=== PATIENT | male | born 1985 | race African-American/Black ===

== ENCOUNTER 2020-05-07 16:12 | Emergency (ER) | payer OTHER ==
[2020-05-07] MEDS ORDERED: KETOROLAC 60 MG/2 ML VIAL IM STA (16:26)
--- NOTE | 2020-05-07 16:42 | ED Physician Documentation ---
PD HPI LOWER EXT INJURY - Stated complaint Stated Complaint: LT KNEE INJ - Chief complaint Chief Complaint: Ext Problem - History obtained from History obtained from: Patient - History of Present Illness PD HPI LOW EXT INJURY LOCATION: Left, Knee Type of injury: Twist Where injury occurred: Park Timing - onset: Yesterday Pain level max: 7 Pain level now: 5 Improved by: Rest, Ice, Immobilization Worsened by: Moving, Palpating Associated symptoms: Swelling. No: Weakness, Numbness, Tingling - Additional information Additional information: 34-year-old male presents the emergency department with a left knee injury while playing soccer yesterday. Feels like his knee gave out on him while running. Worse with movement and better with rest. Review of Systems Constitutional: denies: Fever, Chills Respiratory: denies: Cough GI: denies: Nausea, Vomiting, Diarrhea Skin: denies: Rash Musculoskeletal: denies: Neck pain, Back pain Neurologic: denies: Headache PD PAST MEDICAL HISTORY - Past Medical History Past Medical History: No - Past Surgical History Past Surgical History: No - Present Medications Home Medications: Ambulatory Orders Medication Instructions Recorded Confirmed Ibuprofen [Motrin] 800 mg PO Q8H PRN #30 tablet 05/07/20 - Allergies Allergies/Adverse Reactions: Allergies Allergy/AdvReac Type Severity Reaction Status Date / Time No Known Drug Allergies Allergy Verified 05/07/20 16:21 - Living Situation Living Arrangement: reports: At home - Social History Does the pt have substance abuse?: No - Family History Family history: reports: Non contributory PD ED PE NORMAL - Vitals Vital signs reviewed: Yes - General General: Alert and oriented X 3, No acute distress - HEENT HEENT: Moist mucous membranes - Derm Derm: Warm and dry - Extremities Extremities: Other (Left knee - Mild effusion. No tenderness along the joint lines. ACL, PCL are intact. Mild laxity of the MCL and LCL. Difficulty with meniscus testing secondary to swelling. Neurovascular intact.) - Neuro Neuro: Alert and oriented X 3 Results - Vitals Vitals: Vital Signs - 24 hr 05/07/20 05/07/20 16:19 17:54 Temperature 36.8 C 37 C Heart Rate 88 76 Respiratory 18 16 Rate Blood Pressure 148/99 H 160/87 H O2 Saturation 100 100 Oxygen O2 Source Room air - Rads (name of study) Left knee x-ray Radiology: Prelim report reviewed, EMP read contemporaneously, See rad report (N o fracture or dislocation. Small to moderate knee joint effusion.) PD MEDICAL DECISION MAKING - ED course Complexity details: reviewed results, re-evaluated patient, considered differential, d/w patient ED course: Patient with what appears to be a left knee sprain. Likely collateral ligaments. Unable to tolerate meniscus testing, some may have an injury there as well. The knee is able to be bent and flexed however. Placed in an articulating knee brace. No acute findings on x-ray other than an effusion. Given crutches. Patient counseled regarding signs and symptoms for which I believe and urgent re-evaluation would be necessary. Patient with good understanding of and agreement to plan and is comfortable going home at this time This document was made in part using voice recognition software. While efforts are made to proofread this document, sound alike and grammatical errors may occur. Departure - Departure Disposition: 01 Home, Self Care Clinical Impression: Knee effusion, left Knee sprain Qualifiers: Encounter type: initial encounter Involved ligament of knee: unspecified ligament Laterality: left Qualified Code(s): S83.92XA - Sprain of unspecified site of left knee, initial encounter Condition: Good Instructions: ED Effusion Knee, ED Sprain Knee Follow-Up: GEETA PAGE ARNP [Primary Care Provider] - Within 1 week Prescriptions: Ibuprofen [Motrin] 800 mg PO Q8H PRN #30 tablet PRN Reason: PAIN &/OR FEVER Comments: Your knee will be need to be reexamined when the swelling has decreased. Wear the brace to help stabilize the knee until that time. You may bear weight as tolerated. Return if you worsen. Your x-ray shows a small joint effusion today. When the swelling has decreased, they will be able to better evaluate your ligaments and your meniscus. Discharge Date/Time: 05/07/20 17:59
--- NOTE | 2020-05-07 16:50 | XRAY Report ---
PROCEDURE: Knee 4 View LT INDICATIONS: slipped, knee pain TECHNIQUE: 4 views of the left knee(s) were acquired. COMPARISON: None. FINDINGS: Bones: No fractures or dislocations. No suspicious bony lesions. Soft tissues: Small to moderate joint effusion. No suspicious soft tissue calcifications. IMPRESSION: 1. No fracture or dislocation. 2. [id number] knee joint effusion. Reviewed by: Miguelangel Coughlin MD on 05/07/2020 4:49 PM PDT Approved by: Miguelangel Coughlin MD on 05/07/2020 4:49 PM PDT Station ID: [id number]
[2020-05-07 17:55] VITALS: BP 160/87
== END 2020-05-07 17:59 | disposition home or self-care (01) ==
LOC: ED 16:12
DX: S83.92XA Sprain of unspecified site of left knee, initial encounter (principal); X50.1XXA Overexertion from prolonged static or awkward postures, initial encounter; Y93.66 Activity, soccer; Y92.830 Public park as the place of occurrence of the external cause
CPT/HCPCS: 96372; 99283; 99284

== ENCOUNTER 2020-05-15 09:18 | Outpatient (CLI) | payer OTHER ==
--- NOTE | 2020-05-15 12:45 | MRI Report ---
PROCEDURE: Knee LT W/O INDICATIONS: PAIN IN LT KNEE TECHNIQUE: Noncontrast sagittal PD fast spin echo and T2 fast spin echo with fat saturation, sagittal 3-D gradie nt sequence with fat saturation; coronal T1 spin echo and PD fast spin echo with fat saturation, and axial PD fast spin echo with fat saturation through the knee. COMPARISON: None. FINDINGS: Image quality: Excellent. Menisci: Mild increased T2 hyperintensity involving the periphery of the posterior horn of the medial meniscus , at the meniscocapsular junction suspicious for peripheral tear versus meniscocapsular separation Vertically oriented tear of the lateral meniscus, at the junction of the body and anterior horn for e xample image /. Cruciate ligaments: High-grade partial versus complete rupture of the anterior cruciate ligament. Posterior cruciate ligament appears intact. Medial structures: The medial collateral ligament appears intact. The semimembranosus tendon appears intact. Visualized portions of the pes anserinus tendons appear normal. No abnormal bursal fluid. Lateral structures: Lateral collateral ligament appears severely thickened with T2 hyperintensity and surrounding edema a nd fluid. Biceps femoris tendon appears intact. Iliotibial band within normal limits. Popliteus tendon within normal limits. Anterior structures: Mild patellar tendinopathy Quadriceps tendon appears intact. Medial and lateral patellofemoral ligaments appear grossly intact. Patellar alignment is normal. Hoffa's fat pad unremarkable. Bones and cartilage: Focal marrow contusions involving the lateral femoral condyle, posteromedial and posterolateral tibia l plateau. Within the medial compartment, no focal cartilage defect Within the lateral compartment, no focal cartilage defect Within the patellofemoral compartment, minimal partial thickness loss of the cartilage overlying the medial femoral trochlea. Joint space: Large joint effusion. No Mccarty?s cyst. No specific evidence of loose body identified. IMPRESSION: Multifocal marrow contusions involving the mid lateral femoral condyle, posteromedial and posterolate ral tibial plateau in keeping with pivot shift mechanism of injury. High-grade partial versus complete rupture of the anterior cruciate ligament. Severe sprain of the lateral collateral ligament which appears acute. Vertically oriented tear of the lateral meniscus at the junction of the body and anterior horn Medial meniscus posterior horn peripheral tear versus meniscocapsular separation. Large joint effusion Minimal patellofemoral chondromalacia Mild patellar tendinopathy Reviewed by: Ubaldo Oshea MD on 05/15/2020 12:43 PM PDT Approved by: Ubaldo Oshea MD on 05/15/2020 12:43 PM PDT Station ID: [id number]
== END 2020-05-15 09:19 | disposition home or self-care (01) ==
LOC: DI 09:18
PROVIDERS: ATTEND Family Medicine
DX: S83.282A Other tear of lateral meniscus, current injury, left knee, initial encounter (principal); S83.512A Sprain of anterior cruciate ligament of left knee, initial encounter; S83.402A Sprain of unspecified collateral ligament of left knee, initial encounter; S70.12XA Contusion of left thigh, initial encounter; S80.12XA Contusion of left lower leg, initial encounter; M67.962 Unspecified disorder of synovium and tendon, left lower leg; M22.42 Chondromalacia patellae, left knee; M25.462 Effusion, left knee

== ENCOUNTER 2020-07-04 06:27 | Day surgery (SDC) | payer OTHER ==
[2020-07-04] MEDS ORDERED: CEFAZOLIN SODIUM IN 0.9 % NACL 2 GM/100 ML BAG IV ONE (06:36)
[2020-07-04] MEDS ORDERED: LACTATED RINGERS 1,000 ML IV ONE ×2 (06:54→11:40)
[2020-07-04] MEDS ORDERED: BACITRACIN 50,000 UNIT VIAL IM ONE (07:03)
[2020-07-04] MEDS ORDERED: EPINEPHrine 1 MG/ML AMP ONE (07:05)
[2020-07-04] MEDS ORDERED: BUPIVACAINE 0.25% PF 30 ML VIAL ONE (07:05)
--- NOTE | 2020-07-04 07:59 | ANESTHESIA ---
Pre-Anesthesia VS, & Labs - Diagnosis Left ACL RUpture - Procedure Left ACL Reconstruction Vital Signs: Temp Pulse Resp BP Pulse Ox 36 C L 62 18 140/97 H 100 07/04/20 06:30 07/04/20 06:30 07/04/20 06:30 07/04/20 06:30 07/04/20 06:30 Height 5 ft 5 in Weight (kg) 74.84 kg Body Mass Index 27.4 Home Medications and Allergies Allergies/Adverse Reactions: Allergies Allergy/AdvReac Type Severity Reaction Status Date / Time No Known Drug Allergies Allergy Verified 06/20/20 11:08 Anes History & Medical History - Medical History Cardiovascular: reports: None Pulmonary: reports: None Gastrointestinal: reports: None Urinary: reports: None Musculoskeletal: reports: Other Skin: reports: None Exam General: Alert, Oriented x3, Cooperative, No acute distress Dental: WNL Mouth Opening: Greater than 4 Fingerbreadths Neck Mobility: Normal Mallampati classification: III Thyromental Distance: 4-6 cm Respiratory: Lungs clear, Normal breath sounds, No respiratory distress, No accessory muscle use Cardiovascular: Regular rate, Normal S1, Normal S2, No murmurs Mental/Cognitive Status: Alert/Oriented X3, Normal for patient Cognitive Status: Within normal limits Plan Anesthesia Type: General, Adductor Block Regional Block: Per Surgeon's request for Post Op pain control Consent for Procedure(s) Verified and Reviewed: Yes Code Status: Attempt Resuscitation ASA classification: 1-Healthy patient Is this case an emergency?: No
[2020-07-04] MEDS ORDERED: EPINEPHrine 1 MG/ML AMP IVP ONE (08:03)
[2020-07-04] MEDS ORDERED: diphenhydrAMINE INJ 50 MG/ML VIAL IVP PRN (08:04)
[2020-07-04] MEDS ORDERED: NALOXONE 0.4 MG/ML VIAL IVP PRN (08:04)
[2020-07-04] MEDS ORDERED: ACETAMINOPHEN 1,000 MG/100 ML 100 ML IV ONE (08:04)
[2020-07-04] MEDS ORDERED: METOCLOPRAMIDE 10 MG/2 ML VIAL IVP PRN (08:04)
[2020-07-04] MEDS ORDERED: ONDANSETRON 4 MG/2 ML VIAL IVP PRN ×2 (08:04→11:54)
[2020-07-04] MEDS ORDERED: ATROPINE ABBOJECT 1 MG/10 ML SYRINGE IVP PRN (08:04)
[2020-07-04] MEDS ORDERED: HYDROmorphone 0.5 MG/0.5 ML SYRINGE IVP PRN (08:04)
[2020-07-04] MEDS ORDERED: ePHEDrine 50 MG/ML VIAL IVP PRN (08:04)
[2020-07-04] MEDS ORDERED: fentaNYL 100 MCG/2 ML VIAL IVP PRN (08:04)
[2020-07-04] MEDS ORDERED: BACITRACIN 50,000 UNIT VIAL ONE (08:38)
[2020-07-04] MEDS ORDERED: SODIUM CHLORIDE FLUSH 0.9% 10 ML SYRINGE ONE (08:41)
[2020-07-04] MEDS ORDERED: LACTATED RINGERS 1,000 ML IV SCH (09:00)
[2020-07-04] MEDS ORDERED: BUPIVACAINE 0.25% PF 30 ML VIAL SUBQ ONE (11:07)
[2020-07-04] MEDS ORDERED: oxyCODONE 5 MG TABLET PO PRN (11:54)
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
--- NOTE | 2020-07-04 12:16 | ANESTHESIA POST OP EVALUATION ---
Anesthesia Post Eval - Post Anesthesia Eval Vitals: Last Vital Signs Temp 36.5 C 07/04/20 12:10 Pulse 96 07/04/20 12:10 Resp 24 07/04/20 12:10 BP 137/72 H 07/04/20 12:10 Pulse Ox 97 07/04/20 12:10 CV Function Including HR & BP: positive: Stable Pain Control: positive: Satisfactory Nausea & Vomiting: positive: Negative Mental Status: positive: Other (somnolent) Respiratory Status: Other (oral airway in place) Hydration Status: Satisfactory Anesthesia Complications: positive: None
[2020-07-04] MEDS ORDERED: oxyCODONE 5 MG TABLET ONE (14:27)
[2020-07-04 15:22] VITALS: BP 132/71
== END 2020-07-04 06:28 | disposition home or self-care (01) ==
LOC: SDS 06:27
PROVIDERS: ATTEND Orthopaedic Surgery
DX: S83.512A Sprain of anterior cruciate ligament of left knee, initial encounter (principal); S83.282A Other tear of lateral meniscus, current injury, left knee, initial encounter; X50.1XXA Overexertion from prolonged static or awkward postures, initial encounter; Y93.66 Activity, soccer; Y99.8 Other external cause status

== ENCOUNTER 2022-02-05 10:42 | Outpatient (CLI) | payer OTHER ==
--- NOTE | 2022-02-05 11:56 | SLEEP CARE CONSULTATION ---
Information from patient questionnaire entered by Shawnee May MA. I have reviewed and concur with the information entered by Shawnee May MA. This document represents the service I personally performed and the decisions made by me, Angie Enriquez ARNP. History of Present Illness Service Date and Time: 02/05/2022 1042 Reason for Visit: New patient (ONSET 11/2016, NO PRIORS,) Chief Complaint: reports: Insomnia, Unrefreshed sleep, Snoring Date of Onset: 3 YEARS Usual bedtime: 10 PM Time it takes to fall asleep: 1-2 hours Snores at night: Yes Observed to quit breathing while asleep: No Sleeps alone due to snoring: No Number of times waking at night: 0-1 Reasons for waking at night: reports: Choking (catches himself coughing), Snoring, Gasping for air (nothing recent) Toss, Turn, or Twitch while sleeping: No Recalls having dreams: Yes Usually gets out of bed at: 0500 Feels refreshed in the morning: No Morning headache: No Sleepy or fatigued during the day: Yes Ever fallen asleep while driving: No Takes day naps: Yes (4 times a week, for on avg 2 hours) Dreams during day naps: Yes Prior sleep studies: No Additional HPI information: I had the pleasure of seeing DAISHA AGRAWAL today regarding the possibility of him having a sleep disorder. His current complaints are snoring, unrefreshed sleep and insomnia. He is snoring really loud and waking up choking during the night occasionally. He states he feels real rested in the morning but other times he does not want to "get out of bed". He states if he takes a nap during the day he cannot fall asleep for a few hours when he goes to sleep. He states he will take a nap when he gets home from work for about 2 hours. He may stay up to 2 AM that night. He then has to get up at 0500 for work. 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 Patient is and lives in [place]. Have you smoked in the past 12 months: No Alcohol use: Yes Alcohol amount and frequency: 1-2 cans beer occasionally Caffeine use: Yes Caffeine amount and frequency: 1 drink occasionally Family History Family history of sleep disordered breathing: No Family Hx Sleep Apnea: Mother: Snoring, Grandparent: Snoring Allergies and Home Medications Known drug allergies: No Drug allergies reviewed: Yes Home medication list reviewed: Yes (no daily medications or supplements) Allergy and home medication list: Allergies No Known Drug Allergies Allergy (Verified 06/20/20 11:08) Review of Systems Cardiovascular: denies: high blood pressure Gastrointestinal: denies: heartburn Neurological: denies: headaches, head trauma Psychiatric: denies: anxiety, depression Ear/Nose/Throat: denies: injury to nose, tonsillectomy, wisdom teeth removed Immunologic: denies: allergies to food or environment Physical Exam Vital signs obtained and entered by: Esther MAY CMA [place] Blood Pressure: 122/78 (RIGHT, PULSE 72, RESP 16) Cuff size: wrist Heart Rate: 79 O2 Saturation: 98 (PAPER) Height: 5 ft 5 in Weight: 162 lb (UNIFORM AND BOOTS) Body Mass Index: 26.9 BMI Classification: Overweight Neck circumference: 15 (INCHES) Mouth and throat: narrow oropharynx Soft palate: long Hard palate: normal Uvula: normal Uvula visualization: 25% Mallampati Class III Tongue: enlarged in size with teeth dinero on lateral edges Tonsils: 1+ Neck: normal w/o lymphadenopathy or thyromegaly Heart: regular rate and rhythm Lungs: clear bilaterally Impression and Plan 1. Suspected Obstructive Sleep Apnea-Hypopnea Syndrome, as suggested by a history of loud and irregular snoring, gasping or choking in sleep and unrefreshed sleep. Narrow oropharynx and obesity are common predisposing factors for obstructive sleep apnea-hypopnea syndrome. I recommend proceeding to polysomnography to confirm the diagnosis and to assess severity. If the patient has significant sleep disordered breathing, a manual CPAP titration study will also be performed to find the optimal treatment pressure. I informed the patient of what the sleep studies involve and after some discussion, obtained agreement to proceed. The pathophysiology of obstructive sleep apnea-hypopnea syndrome was discussed with the patient and health risks of cardiovascular and cerebrovascular disease if not treated. Risks of drowsy driving discussed in detail and patient advised to avoid long distance driving and to chute puller at the first sign of drowsiness. Patient agreed to plan. * Schedule polysomnography +- manual CPAP titration study and return in 1-2 we eks after the study to discuss result and initiate therapy. * Avoid long distance driving or driving when feeling sleepy. * Avoid alcohol, sedative and muscle relaxant around bedtime. * Attempt to lose weight. * Review instructions provided by trained office staff on how to prepare for the sleep study. * Return for follow-up after sleep study completed. Counseling Topics: Weight loss health impact Visit Type: In Office Time Spent with Patient (minutes): 30 Provider Statement: I spent 100% of the Face to Face Visit with the patient with greater than 50% spent counseling the patient and coordination of care.
[2022-02-05 11:57] VITALS: BP 122/78
== END 2022-02-05 10:43 | disposition home or self-care (01) ==
LOC: SC 10:42
PROVIDERS: ATTEND Nurse Practitioner Family
DX: R06.83 Snoring (principal); G47.8 Other sleep disorders; E66.3 Overweight; Z68.26 Body mass index [BMI] 26.0-26.9, adult
CPT/HCPCS: 99203; 99212

== ENCOUNTER 2022-02-12 12:24 | Outpatient (CLI) | payer OTHER | END 2022-02-12 12:25 | disposition home or self-care (01) | LOC: SC 12:24 | PROVIDERS: ATTEND Nurse Practitioner Family | DX: G47.33 Obstructive sleep apnea (adult) (pediatric) (principal); R09.02 Hypoxemia | CPT/HCPCS: 95806 ==

== ENCOUNTER 2022-02-26 08:39 | Outpatient (CLI) | payer OTHER ==
[2022-02-26 09:11] VITALS: BP 126/78
--- NOTE | 2022-02-26 09:11 | SLEEP CARE CONSULTATION ---
Information from patient questionnaire entered by Shawnee Ibarra MA. I have reviewed and concur with the information entered by Shawnee Ibarra MA. This document represents the service I personally performed and the decisions made by , Angie Enriquez ARNP. History of Present Illness Service Date and Time: 02/26/2022 0839 Initial [place] Sleepiness Scale score: 9 (2021) Current [place] Sleepiness Scale score: 8 (03/08) Additional HPI information: DAISHA AGRAWAL returns for follow up and results of the recently performed home sleep study. I explained the pathophysiology behind obstructive sleep apnea. We then spent quite a bit of time discussing different treatment options. For mild obstructive sleep apnea, surgery and oral appliance are alternatives to nasal CPAP therapy but in moderate or severe cases, nasal CPAP is the most effective and reliable treatment. I reviewed the impact of weight changes on sleep apnea and strongly recommended losing weight. I explained how CPAP machine works and what to expect when using the machine. [facility] patient education PAP tips and Non Pap treatment pamphlets reviewed and given to patient. Patient counseled not drink alcohol less than 4 hours before bedtime as it can increase snoring and apnea. Patient was cautioned about risks of drowsy driving until sleepiness symptoms resolve. Patient denies drowsy driving. Sleep Study - Results Type of Sleep Study: Home sleep study (F/U HOME STUDY, 02/12/22 [facility],) Prior sleep studies: No Polysomnography/Home Sleep Study results: Physician Impression: The quality of the study is good. The length of the study is adequate (> 240 minutes). Please also see the tabulated and graphic data. 1. Obstructive Sleep Apnea-Hypopnea (ICD-10 G47.33), moderate, with an AHI of 16.3/hr and aleksandra SaO2 of 81%. During the study, the patient had 103 apneas (100 obstructive, 2 central, 1 mixed) and 25 hypopneas. The longest episode lasted 123.0 seconds. The patient did not sleep supine during this study. 2. Hypoxemia (ICD-10 R09.02), mild, with the lowest oxygen saturation of 81 % and 20.0 minutes with SaO2 under 90%. Baseline oxygen saturation was normal (Average oxygen saturation was 95%). Allergies and Home Medications Known drug allergies: No Drug allergies reviewed: Yes Home medication list reviewed: Yes (no changes) Allergy and home medication list: Allergies No Known Drug Allergies Allergy (Verified 06/20/20 11:08) Review of Systems Review of systems same as previous: Yes (no changes) Physical Exam Vital signs obtained and entered by: REG [facility] Blood Pressure: 126/78 (RIGHT, PULSE 78, RESP 16) Cuff size: wrist Heart Rate: 78 O2 Saturation: 98 (PAPER) Height: 5 ft 5 in Weight: 165 lb (PT CLOTHES) Body Mass Index: 27.4 BMI Classification: Overweight Impression and Plan 1. Obstructive Sleep Apnea-Hypopnea Syndrome, moderate, with lowest oxygen saturation of 81%. Obviously this is the cause of the patients symptoms of unrefreshed sleep, and excessive daytime sleepiness. After reviewing his best options of CPAP or oral device, patient decided to try an oral appliance. A 3 month follow up will be made to see if appliance has reduced symptoms. If so, another polysomnography will be ordered with use of the oral appliance to check efficacy in reducing apnea. 2. Hypoxemia, mild, with the lowest oxygen saturation of 81 % and 20.0 minutes with SaO2 under 90%. His baseline oxygen saturation was normal with an average oxygen saturation of 95%. * Oral appliance * Attempt to lose weight. * Avoid alcohol consumption near bedtime. * The patient is again cautioned about driving until sleepiness completely resolves. * Return in about 3 months after oral appliance obtained and used. I will assess response to therapy and compliance at that time. Counseling Topics: Weight loss health impact Prescriptions: Other (Oral appliance) Visit Type: In Office Time Spent with Patient (minutes): 20 Provider Statement: I spent 100% of the Face to Face Visit with the patient with greater than 50% spent counseling the patient and coordination of care.
== END 2022-02-26 08:40 | disposition home or self-care (01) ==
LOC: SC 08:39
PROVIDERS: ATTEND Nurse Practitioner Family
DX: G47.33 Obstructive sleep apnea (adult) (pediatric) (principal); R09.02 Hypoxemia
CPT/HCPCS: 99212; 99213